=== PATIENT | male | born 1965 | race Caucasian/White ===

== ENCOUNTER 2019-12-17 13:53 | Outpatient (AMBR) | payer MEDICARE, MEDICAID, SELFPAY ==
--- NOTE | 2019-12-17 14:08 | PTNOTE_ITS ---
PT OP Initial Eval Patient Information Visit Reasons: bilateral elbow pain Medical Diagnosis: M77.12 M77.11 Treatment Dx #1: B elbow pain Start of Care: 12/17/19 Date of Onset: 9 months ago Initial Assessment Subjective Pt is 54 yr old male who c/o B elbow pain onset about 9 months ago. 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 Increased pain with gripping, HH and yardwork chores along with riding quad. He has had 2 pain shots in the R elbow and 1 in the L with good relief to resolve ssx. PMH: ear drum replacement on L, allergies, B carpal tunnel Imaging: none reported Pt goal: less elbow pain in order to do HH and yardwork chores. Objective Outside Rigger strength: R: 85 lbs, 90 lbs with pain releasing in lateral epicondyle region Wrist ArOM: Strength: Flexion: R: full, L: full 4/5 Extension: R: full, L: full 4/5 Special testing: Cozen's: positive Mill's test: negative TTP: moderate over lateral epicondyles B Assessment Pt presentation consistent with referring Dx of B lateral epicondylitis with decreased automotive service professional strength and function. He has TTP of lateral epicondyles and weaker automotive service professional strength on R dominant hand than L. Pt requires skilled therapy in order to improve strength and function and decrease pain. Short Term and Mine Deputy Goals 1. Ind with HEP 2. Improved automotive service professional strength to at least 90 lbs on R without pain 3. Decreased TTP of lateral elbows from mod to min 4. Improved HH and yardwork tolerance by 50% Treatment Plan 1. Manual therapy 2. Therex 3. Modalities as indicated, moist heat, ice, estim Frequency and Duration 2x a week for 6 weeks Certification Dates: 12/17/19 to 03/18/20 Office Procedures PT Procedures PT Date of Service: 12/17/19 OP PT Eval Mod Complex 30 minutes: Yes
== END 2020-01-10 23:59 | disposition home or self-care (01) ==
PROVIDERS: PCP Physician Assistant Medical; Referring Provider Physician Assistant Medical; Visit Provider Physician Assistant Medical
DX: M25.522 Pain in left elbow (principal); M25.521 Pain in right elbow; R53.1 Weakness
CPT/HCPCS: 97162